=== PATIENT | male | born 1985 | race Caucasian/White ===

== ENCOUNTER 2025-08-29 23:53 | Emergency (ER) | payer BC, SELFPAY ==
[2025-08-29 23:54] VITALS: BMI 24.3
[2025-08-30 00:16] VITALS: BP 127/80; PULSE 65; RESP 16; TEMP 36.6; O2SAT 98
--- NOTE | 2025-08-30 00:19 | PD.EDRME ---
Rapid Medical Screening Exam E Arrival date/time: 08/29/25 23:53 Chief Complaint: Alcohol Vital signs: Vital Signs Temperature 97.8 F 08/30/25 00:16 Pulse Rate 65 08/30/25 00:16 Respiratory Rate 16 08/30/25 00:16 Blood Pressure 127/80 08/30/25 00:16 Pulse Oximetry (%) 98 08/30/25 00:16 Oxygen Delivery Method Room Air 08/30/25 00:16 [facility] Narrative: Patient brought in by his mother after he was walking into her house after drinking 5 shots of whiskey and was stumbling around and ended up passing out on her floor for 30 minutes. Pt states he feels much better now.
== END 2025-08-30 08:12 | disposition left against medical advice (07) ==
LOC: SERX 08-30 00:38
PROVIDERS: Emergency Provider Emergency Medicine
DX: Z53.21 Procedure and treatment not carried out due to patient leaving prior to being seen by health care provider (principal)
CPT/HCPCS: 80053; 80307; 80320; 85025; 99283; G0480